=== PATIENT | male | born 1960 | race African-American/Black ===

== ENCOUNTER 2020-07-08 14:15 | Emergency (ER) | payer OTHER ==
[2020-07-08] MEDS ORDERED: NAPROXEN 375 MG TABLET PO ONE (14:25)
[2020-07-08 14:35] VITALS: BP 135/91; PULSE 96; TEMP 99.7; BMI 25.7
--- NOTE | 2020-07-08 14:58 | PDOC ---
History of Present Illness - General Chief Complaint: Pain, Acute Stated Complaint: R SHOULDER INJURY Time Seen by Provider: 07/08/20 14:19 History Source: Patient Exam Limitations: No Limitations - History of Present Illness Initial Comments: 07/08/20 14:53 CHIEF COMPLAINT: Right shoulder pain today HISTORY OF PRESENT ILLNESS: 59-year-old man with a history of hypertension pr esents complaining of an injury to his right shoulder. He states he was lifting up a heavy linen cart at work when he felt a pop in his right shoulder. Now he has pain when he moves the right arm. Extension or internal rotation cause increased pain in the right shoulder. There is no numbness or weakness distally in the arm. REVIEW OF SYSTEMS: No fever or chills No falls No head or neck pain Positive right shoulder pain radiating to the right proximal upper arm, increased with movement No numbness or weakness in the right arm Past History - Medical History Allergies/Adverse Reactions: Allergies Allergy/AdvReac Type Severity Reaction Status Date / Time No Known Allergies Allergy Unverified 07/08/20 14:24 Home Medications: Ambulatory Orders Naproxen 375 mg PO BID PRN #14 tablet 07/08/20 COPD: No HTN: Yes (does not recall meds) - Immunization History Immunization Up to Date: Yes - Psycho-Social/Smoking History Smoking History: Never smoked Have you smoked in the past 12 months: No Information on smoking cessation initiated: No - Substance Abuse Hx (Audit-C & DAST Scrn) How often the patient has a drink containing alcohol: Never Score: In Men: 4 or > Positive; In Women: 3 or > Positive: 0 Screen Result (Pos requires Nsg. Audit-10AR): Negative *Physical Exam - Vital Signs Last Vital Signs Temp Pulse Resp BP Pulse Ox 99.7 F H 96 H 18 135/91 97 07/08/20 14:17 07/08/20 14:17 07/08/20 14:17 07/08/20 14:17 07/08/20 14:17 - Physical Exam 07/08/20 14:54 GENERAL: The patient is awake, alert, and fully oriented, in no acute distress. HEAD: Normal with no signs of trauma. EYES: Pupils equal, round and reactive to light, extraocular movements intact, sclera anicteric, conjunctiva clear. EXTREMITIES: The right shoulder shows no signs of swelling or deformity. The patient is able to internally rotate the shoulder, but this causes pain. He is able to extend to 110 degrees, but this also causes pain. External rotation as well causes pain. There is diffuse tenderness around the glenohumeral joint, anterior, superior, and posterior. There is no AC joint tenderness. NEUROLOGICAL: Normal speech, normal gait. Normal sensation and strength in the right arm. PSYCH: Normal mood, normal affect. SKIN: Warm, Dry, normal turgor, no rashes or lesions noted. ED Treatment Course - RADIOLOGY Radiology Studies Ordered: Category Date Time Status SHOULDER-RIGHT [RAD] Stat Radiology 07/08/20 14:22 Ordered - Medications Given in the ED: ED Medications Discontinued Medications Generic Name Dose Route Start Last Admin Trade Name Freq PRN Reason Stop Dose Admin Naproxen 375 mg 07/08/20 14:25 07/08/20 14:40 Naprosyn - PO 07/08/20 14:26 375 mg ONCE ONE Administration Medical Decision Making - Medical Decision Making 07/08/20 14:55 With right shoulder pain that started while lifting when he heard a pop in the shoulder. On examination there is diffuse tenderness at the glenohumeral joint. Range of motion is present, but it causes increased pain. There is no erythema or warmth of the joint. X-rays of the right shoulder show no fracture or dislocation. AC joint appears in good position. Impression: Right shoulder sprain. Treat with Naprosyn and provide a sling. Discharge - Discharge Information Problems reviewed: Yes Clinical Impression/Diagnosis: Sprain of right shoulder Qualifiers: Encounter type: initial encounter Shoulder sprain type: unspecified sprain Qualified Code(s): S43.401A - Unspecified sprain of right shoulder joint, initial encounter Condition: Stable Disposition: HOME - Admission No - Additional Discharge Information Prescriptions: Naproxen 375 mg PO BID PRN #14 tablet PRN Reason: Pain - Follow up/Referral - Patient Discharge Instructions Patient Printed Discharge Instructions: How to Use a Sling, DI for Shoulder Sprain Additional Instructions: You were evaluated for an injury to your right shoulder. The x-rays are good, and show no broken bones and no dislocation. You are advised to take Naprosyn 375 mg 2 times a day to help relieve the pain. A prescription has been sent electronically to your pharmacy. Use the sling for comfort as needed. Remove it at night. Follow-up if the symptoms have not improved in 1 week. You have been provided with an orthopedic referral to Dr. Lazaro Anne. Call to schedule an appointment as needed. Return to the emergency department for any severe or progressive symptoms. - Post Discharge Activity Work/Back to School Note: Back to Work
== END 2020-07-08 15:10 | disposition home or self-care (01) ==
LOC: FER 14:15
DX: S43.401A Unspecified sprain of right shoulder joint, initial encounter (principal)
CPT/HCPCS: 73030-TC-RT-FY; 99283-25

== ENCOUNTER 2021-02-02 05:56 | Day surgery (SDC) | payer OTHER ==
[2021-01-30 15:48] VITALS: BMI 25.9
[2021-02-02] MEDS ORDERED: MIDAZOLAM HCL 2 MG/2 ML SINGLE DOSE VIAL ONE ×2 (06:42→07:22)
[2021-02-02] MEDS ORDERED: ROPIVACAINE HCL 0.5% 30ML VIAL ONE (06:42)
[2021-02-02] MEDS ORDERED: EPINEPHrine 1:1,000 1 MG/1 ML - 30ML VIAL (INJECTION) ONE (07:15)
[2021-02-02] MEDS ORDERED: SUCCINYLCHOLINE CHLORIDE 200 MG/10 ML SYRINGE ONE (07:27)
[2021-02-02] MEDS ORDERED: PROPOFOL 20 ML ONE (07:27)
[2021-02-02] MEDS ORDERED: EPHEDRINE SULFATE/0.9% NACL/PF 50 MG/10 ML SYRINGE NR ONE ×2 (07:27→08:55)
[2021-02-02] MEDS ORDERED: LIDOCAINE HCL/PF 2% SDV 5ML VIAL ONE (07:27)
[2021-02-02] MEDS ORDERED: GLYCOPYRROLATE 0.2 MG/1 ML VIAL ONE ×3 (07:28→08:55)
[2021-02-02] MEDS ORDERED: DEXAMETHASONE SOD PHOSPHATE 4 MG/1 ML VIAL ONE ×2 (07:28→08:14)
[2021-02-02] MEDS ORDERED: ceFAZolin SODIUM 1 GM VIAL ONE (07:28)
[2021-02-02] MEDS ORDERED: ONDANSETRON 4 MG/2 ML VIAL ONE (07:28)
[2021-02-02] MEDS ORDERED: LABETALOL HCL 5 MG/1 ML (100MG/20 ML VIAL) ONE (08:20)
[2021-02-02] MEDS ORDERED: oxyCODONE HCL 5 MG TABLET PO PRN ×2 (08:35)
[2021-02-02] MEDS ORDERED: ONDANSETRON 4 MG/2 ML VIAL IVPUSH PRN (08:35)
[2021-02-02] MEDS ORDERED: LACTATED RINGERS SOLUTION 1,000 ML IV SCH (08:45)
[2021-02-02 09:19] VITALS: TEMP 98.6
[2021-02-02 11:25] VITALS: BP 123/73; PULSE 88
== END 2021-02-02 11:10 | disposition home or self-care (01) ==
LOC: FASU 05:56
PROVIDERS: ATTEND Orthopaedic Surgery
PROC: 0MM14ZZ Reattachment of Right Shoulder Bursa and Ligament, Percutaneous Endoscopic Approach (ICD-10-PCS; 2021-02-02)
PROC: 0RNJ4ZZ Release Right Shoulder Joint, Percutaneous Endoscopic Approach (ICD-10-PCS; 2021-02-02)
PROC: 0PB94ZZ Excision of Right Clavicle, Percutaneous Endoscopic Approach (ICD-10-PCS; 2021-02-02)
PROC: 0RNJ4ZZ Release Right Shoulder Joint, Percutaneous Endoscopic Approach (ICD-10-PCS; principal; 2021-02-02 08:24)
DX: M75.41 Impingement syndrome of right shoulder (principal); M75.01 Adhesive capsulitis of right shoulder; M19.011 Primary osteoarthritis, right shoulder; S46.211A Strain of muscle, fascia and tendon of other parts of biceps, right arm, initial encounter; S43.431A Superior glenoid labrum lesion of right shoulder, initial encounter; X58.XXXA Exposure to other specified factors, initial encounter; Y92.9 Unspecified place or not applicable; Y93.9 Activity, unspecified
CPT/HCPCS: 88304-TC; 94760